=== PATIENT | female | born 1960 | race Caucasian/White ===

== ENCOUNTER 2019-04-26 08:41 | Emergency (ER) | payer OTHER ==
[~2019-04-26] VITALS: Ht 170.2 cm; Wt 55.8 kg
[2019-04-26] MEDS ORDERED: FLONASE ALLERG9.9 ML NAS (08:52)
== END 2019-04-26 09:08 | disposition home or self-care (01) ==
LOC: ED 08:41
DX: S91.312A Laceration without foreign body, left foot, initial encounter (principal); W45.8XXA Other foreign body or object entering through skin, initial encounter
CPT/HCPCS: 90471; 90715; 99282-25